=== PATIENT | female | born 1990 | race Caucasian/White ===

== ENCOUNTER 2016-12-09 09:15 | Day surgery (SDC) | payer OTHER ==
[~2016-12-09] VITALS: Ht 157.5 cm; Wt 111.3 kg
[2016-12-09] VITALS (10 sets, daily range): BP systolic 110–147; BP diastolic 72–88; PULSE 65–94; RESP 9–18; O2SAT 95–100
[~2016-12-09 09:15] MED LIST: Dexamethasone 10 mg/mL Inj IV ONE; Dexamethasone Inj 20 MG in 0.9% Sodium Chloride-Pha MIX 50 ML IV ONE; Lactated Ringer's 1,000 ML IV ONE; Lactated Ringer's 1,000 ML IV SCH
[2016-12-09] MEDS ORDERED: MetoCLOpramide 5 mg/mL 2 mL Inj ONE (09:16)
[2016-12-09] MEDS ORDERED: Ondansetron 2 mg/mL 2 mL Inj ONE (09:16)
[2016-12-09] MEDS ORDERED: EPHEDrine/NS 5 mg/mL 5 mL Syringe ONE (09:16)
[2016-12-09] MEDS ORDERED: fentaNYL-PF 50 mCg/mL 2 mL Inj ONE (09:16)
[2016-12-09] MEDS ORDERED: Propofol 10,000 mCg/mL 20 mL Inj ONE (09:16)
[2016-12-09] MEDS ORDERED: Lactated Ringer's 1,000 ML IV ONE ×3 (10:07→13:35)
[2016-12-09] MEDS ORDERED: Bismuth Subgallate Powder 25 Gm TOPICAL ONE (11:25)
[2016-12-09] MEDS ORDERED: Bupivacaine-MPF 0.5% W/EPI 30 mL Inj INJ ONE (11:25)
[2016-12-09] MEDS ORDERED: Lidocaine 1%-Epi 1:100,000 20 mL Inj INJ ONE (11:25)
[2016-12-09] MEDS ORDERED: Lactated Ringer's 1,000 ML IV SCH (11:31)
[2016-12-09] MEDS ORDERED: Lactated Ringer's 500 ML IV PRN (11:31)
[2016-12-09] MEDS ORDERED: HYDROmorphone 1 mg/mL Inj IVPUSH PRN (11:35)
[2016-12-09] MEDS ORDERED: fentaNYL-PF 50 mCg/mL 2 mL Inj IVPUSH PRN (11:35)
[2016-12-09] MEDS ORDERED: Ondansetron 2 mg/mL 2 mL Inj IVPUSH PRN (11:35)
[2016-12-09] MEDS ORDERED: Phenylephrine 10,000 mCg/mL Inj IVPUSH PRN (11:35)
[2016-12-09] MEDS ORDERED: hydrALAZINE 20 mg/mL Inj IVPUSH PRN (11:35)
[2016-12-09] MEDS ORDERED: Labetalol 5 mg/mL 4 mL Inj IV PRN (11:35)
[2016-12-09] MEDS ORDERED: EPHEDrine Sulfate 50 mg/mL Inj IVPUSH PRN (11:35)
[2016-12-09] MEDS ORDERED: Atropine 0.4 mg/mL Inj IVPUSH PRN (11:35)
[2016-12-09] MEDS ORDERED: MetoCLOpramide 5 mg/mL 2 mL Inj IVPUSH PRN (11:35)
[2016-12-09] MEDS ORDERED: HYDROcodone-APAP 7.5-325 mg/15 mL 15 mL Solution ONE (12:43)
--- NOTE | 2016-12-09 14:58 | PCM.HPANE ---
Patient Data Surgeon Admitting Provider: Attending Provider:Kenton Gracia MD Primary Care Physician:Jessica Other Provider:Sonali Snow Anesthesia Reason for Visit Hypertrophy Of Tonsils Ht/WT & BMI Height (Feet): 5 Height (Inches): 2 Weight (Kilograms): 111.3 Body Mass Index 45.00 Allergies Coded Allergies: No Known Allergies (Unverified , 12/04/16) Past Anesthesia History Anesthesia History: Denies:: Anesthesia Reactions, Fam Anesthesia Reaction (dad - gets "angry") Diabetes History Hx Diabetes?: No MRSA MRSA: No Medications Hypertension Medication: No Home Meds Incl Beta Pino: No Discontinued Reported Medications [mirena] 20mcg/24 hrs No Conflict Check20 Mcg INTRAUTERI DAILY 12/04/16 History History of ENT Problems?: Yes HEENT History: Denies:: Cataracts Glaucoma Hearing Problem Sinus Problem TMJ Hx of Heart Problems?: No Cardiovascular History: Denies:: AICD Abdominal Aortic Aneurism Cardiac Surgery Heart Murmur Hypertension Irregular Heartbeat Pacemaker Hx of Respiratory Problem?: No Respiratory History: Denies:: Asthma COPD Emphysema Oxygen Administration Pneumonia Tuberculosis Use of C-PAP Machine Use of Inhalers / NEBS Hx Neurologic Problems?: No Neurological History: Denies:: CVA Headaches Multiple Sclerosis Parkinson's Disease Seizures TIA Hx of GI Problems?: No Gastrointestinal History: Denies:: Cirrhosis Gall Bladder Disease Gastroesphageal Reflux Gastrointestinal Bleeding Heartburn Hepatitis Hiatal Hernia Liver Disease Rectal Bleeding Hx of Problems?: No Genitourinary History: Denies:: Kidney Stones Urinary Tract Infection Female Hx: Denies:: Currently Problems with Breasts? Skin History: Denies:: History Skin Disorders? Pressure Ulcers Hx Musculoskeletal Problems?: No Musculoskeletal History: Denies:: Back Injury Fibromyalgia Joint Replacement Musculoskeletal Trauma Myasthenia Gravis Osteoarthritis Hx of Psycho/Social Problems?: No Psycho Social History: Denies:: Anxiety Hx Depression Hx Surgeries?: Yes (dental, septoplasty) Hx Any Other Health Problems?: Yes Other History: Denies:: Cancer Thyroid Disease History Blood Transfusions: Positive for:: Accept Blood Products? Denies:: Blood Transfusions Hx Diabetes: No Hx Alcohol Use: YesAlcoholic Drinks Per Day: one to two drinks every couple weeksHx Substance Use: NoHave You Smoked inLast 12 mo: No Stop/Bang S-Snoring: Do You Snore Loudly: Yes T-Tired: feel tired, fatigued: Yes O-Obsered: Observed not breath: No P-Blood Pressure: treated: No B- Body Mass Index > 35 kg/m2: Yes A- Age over 50: No N- Neck Large Circumference: Yes G- Gender Male: No PETEY Total Score: 4 Risk Assessment Category Category 1A: Patient has history of documented sleep apnea, and HAS NOT received any narcotic, sedative or anesthesia administration during this stay. Category 1B: Patient has history of documented sleep apnea, and HAS received any narcotic , sedative or anesthesia administration during this stay Category 2: Patient has SUSPECTED Obstructive Sleep Apnea, and HAS received any narcotic , sedative or anesthesia administration during this stay. Category 3: Patient has SUSPECTED Obstructive Sleep Apnea and HAS NOT received narcotic, sedative or anesthesia administration during this stay. Category 4: Outpatient in Procedural Areas with known sleep apnea or who screen positive for High Risk via the STOP/BANG questionnaire. Exam Exam Vital Signs Vital Signs Date Time Temp Pulse Resp B/P Pulse Ox O2 Delivery O2 Flow Rate FiO2 12/09/16 09:44 36.3 75 18 123/72 97 Room Air General Appearance: Alert, Oriented X3, Cooperative, No Acute Distress HEENT/AIRWAY: MP 2, Neck Movement (FROM, large neck circumference), Mouth Opening (3 FBMO) Lungs: Clear to Auscultation, Normal Air Movement Heart: Exam Unremarkable, Regular Rate/Rhythm, No Murmurs/Rubs/Gallops Plan Impression Patient chart reviewed, patient interviewed and anesthestic plan with risks, benefits, and alternatives discussed, and informed consent obtained. NPO Status: > 8 hrs ASA Physical Status: ASA3 Severe Disease (bmi ) Anesthetic Plan: GA Bene/Risks/Altern/Consents: Yes HP Complete Prior to Induction: Yes Gordo Sahni MD Dec 09, 2016 09:59
--- NOTE | 2016-12-09 14:59 | PCM.ANEP2 ---
Post Anesthesia Evaluation ASA/CMS Post Anesthesia VS in Patient's Normal Range?: Yes Resp Stable; Airway Patent?: Yes CV Function & Hydration Stable: Yes Mental Status Recovered?: Yes Pain control Satisfactory?: Yes N/V Control Satisfactory?: Yes Gordo Sahni MD Dec 09, 2016 14:59
--- NOTE | 2016-12-09 14:59 | PCM.ANEP1 ---
Post Anesthesia Phase 1 PACU Phase 1 Assessment Vital Signs Vital Signs Date Time Temp Pulse Resp B/P Pulse Ox O2 Delivery O2 Flow Rate FiO2 12/09/16 14:30 36.8 77 14 118/88 99 Room Air 12/09/16 13:33 88 17 131/72 95 Room Air 12/09/16 13:16 94 17 96 Room Air 12/09/16 12:45 92 17 127/88 96 Room Air 12/09/16 12:34 36.6 74 14 126/83 98 Room Air 12/09/16 12:30 36.6 73 14 132/81 96 Room Air 12/09/16 12:15 69 9 110/73 100 Simple Mask 10 12/09/16 12:10 65 9 132/83 100 Simple Mask 10 12/09/16 12:02 36.8 147/86 12/09/16 09:44 36.3 75 18 123/72 97 Room Air Anesthetic Administered: GA Level of Alertness: Awake, talking BALDWIN's with Equal Strength: Yes Pain: No Nausea or Vomiting: No Oxygen Delivery: Simple Mask Lungs: Clear to Auscultation, Normal Air Movement Dermatome Level: Full Sensation Gordo Sahni MD Dec 09, 2016 14:59
--- NOTE | 2016-12-09 23:20 | OP ---
[address] [id number] OPERATIVE REPORT PATIENT: ZAID VILLARREAL : 1990 MR#: [id number] ADMIT: 12/09/2016 JOB ID: [id number] DATE OF SURGERY: 12/09/2016 SURGEON: Kenton Gracia MD, [facility] OPERATION PERFORMED: Tonsillectomy. PREOPERATIVE DIAGNOSIS(ES): Chronic tonsillitis. POSTOPERATIVE DIAGNOSIS(ES): Chronic tonsillitis. INDICATION FOR PROCEDURE: Chronic tonsillitis. FINDINGS: Small adenoids, 3+ cryptic tonsils. OPERATIVE PROCEDURE: With the patient supine on the operating table, general orotracheal anesthesia was used. Tongue and soft palate retracted. Small adenoids noted. Soft palate released. Bilateral extracapsular cautery technique tonsillectomy performed under direct vision with Bovie cautery. Hemostasis with Bovie cautery, bismuth paste and 2-0 chromic sutures collapsing the tonsil bed. Hemostasis adequate. Procedure turned over to anesthesia for emergence from anesthetics without known complications.
== END 2016-12-09 23:59 | disposition home or self-care (01) ==
LOC: SAS 09:15
PROVIDERS: ATTEND Otolaryngology Facial Plastic Surgery
DX: J35.01 Chronic tonsillitis (principal)
CPT/HCPCS: 42826; J1100; J1170; J2405; J2765; J7120